=== PATIENT | male | born 1980 | race Two or more races ===

== ENCOUNTER 2018-07-07 14:59 | Emergency (ER) | payer MEDICAID ==
[~2018-07-07] VITALS: Ht 172.7 cm; Wt 74.4 kg
[2018-07-07 16:49] VITALS: BP 146/86
== END 2018-07-07 18:24 | disposition home or self-care (01) ==
LOC: ER 14:59
DX: E34.8 Other specified endocrine disorders (principal); I10 Essential (primary) hypertension; Z76.0 Encounter for issue of repeat prescription

== ENCOUNTER 2018-09-12 12:29 | Emergency (ER) | payer MEDICAID ==
[~2018-09-12] VITALS: Ht 172.7 cm; Wt 72.6 kg
[2018-09-12 12:41] VITALS: BP 156/72
[2018-09-12] MEDS ORDERED: LIDOCAINE 2% (LOCAL ANESTH.) PF 5ml SDV ONE (15:11)
[2018-09-12] MEDS ORDERED: TETANUS-DIPTH-ACEL PERTUSSIS 0.5ML SYRG IM ONE (15:15)
[2018-09-12] MEDS ORDERED: cefTRIAXone SOD 1,000 MG VL IM ONE (15:15)
[2018-09-12] MEDS ORDERED: LIDOCAINE 2% (LOCAL ANESTH.) PF 5ml SDV IJ ONE (15:30)
== END 2018-09-12 17:06 | disposition home or self-care (01) ==
LOC: EDSEX → EDBD 12:29 → ER 12:32
DX: S01.01XA Laceration without foreign body of scalp, initial encounter (principal); M25.512 Pain in left shoulder; I10 Essential (primary) hypertension; W01.0XXA Fall on same level from slipping, tripping and stumbling without subsequent striking against object, initial encounter; Y93.01 Activity, walking, marching and hiking; Y92.480 Sidewalk as the place of occurrence of the external cause; Y99.8 Other external cause status
CPT/HCPCS: 12004; 70450; 73030; 90471; 90715; 93005; 96372; 99284; J0696; J2001

== ENCOUNTER 2018-09-13 15:55 | Emergency (ER) | payer MEDICAID ==
[~2018-09-13] VITALS: Ht 185.4 cm; Wt 90.7 kg
[2018-09-13 16:47] LABS: Basophils # (auto) 0 uL; Basophils % (auto) 0.2 % (0.0-2.0); Eosinophils # (auto) 0 uL; Eosinophils % (auto) 0.4 % (0.0-7.0); Hematocrit 40.6 % (41.0-53.0); Lymphocytes # (auto) 0.9 uL; Lymphocytes % (auto) 12.8 % (10.0-50.0); Mean Corpuscular Hemoglobin 31.4 pg (28.0-32.0); Mean Corpuscular Hgb Conc. 34.5 g/dL (32.0-36.0); Monocytes # (auto) 0.6 uL; Monocytes % (auto) 8.1 % (0.0-12.0); Neutrophils # (auto) 5.8 uL; Neutrophils % (auto) 78.5 % (37.0-80.0); Nucleated Red Blood Cells % 0.1 %; Platelet Count (auto) 277 10^3/uL (140-450); Red Blood Cells 4.46 10^6/uL (4.5-5.90); Red Cell Distribution Width 13.9 % (11.8-14.3); White Blood Cell 7.3 10^3/uL (4.4-10.8)
[2018-09-13 17:00] LABS: Albumin 3.9 g/dL (3.4-5.0); Anion Gap 7 (5-15); Blood Alcohol < 3.0 mg/dL (0-5); Blood Urea Nitrogen 9 mg/dL (7-18); Calcium 8.3 mg/dL (8.5-10.1); Carbon Dioxide 25 mmol/L (21-32); Chloride 104 mmol/L (98-107); Glucose 89 mg/dL (74-106); Potassium 3.7 mmol/L (3.5-5.1); Salicylate < 1.7 mg/dL (2.8-20.0); Sodium 136 mmol/L (136-145)
[2018-09-13 17:04] LABS: Alanine Aminotransferase 43 U/L (16-61); Alkaline Phosphatase 94 U/L (45-117); Aspartate Aminotransferase 29 U/L (15-37); Bilirubin, Total 0.5 mg/dL (0.2-1.0); GFR African American 80 mL/min; GFR Non-African American 66 mL/min; Total Protein 6.9 g/dL (6.4-8.2)
[2018-09-13 17:09] LABS: Acetaminophen < 2.0 ug/mL (10-30)
[2018-09-13 17:22] LABS: Urine Amorphous Crystal FEW /hpf (None Seen); Urine Bacteria NONE SEEN /hpf (None Seen); Urine Blood Negative /uL (Negative); Urine Hyaline Cast FEW /lpf (0 - 2); Urine Specific Gravity 1.013 (1.001-1.035); Urine WBC 3 /hpf (0 - 3)
[2018-09-13 17:30] LABS: Alcohol, Urine < 3.0 mg/dL (0-5); Amphetamine Screen, Urine NEGATIVE (NEGATIVE); Barbiturate Scree,Urine NEGATIVE (NEGATIVE); Benzodiazephine Screen, Urine POSITIVE (NEGATIVE); Cannabinoid Screen, Urine NEGATIVE (NEGATIVE); Cocaine Screen, Urine NEGATIVE (NEGATIVE); Opiate Scree,Urine NEGATIVE (NEGATIVE); Phencyclidine Screen, Urine NEGATIVE (NEGATIVE)
[2018-09-14 00:57] VITALS: BP 128/85
== END 2018-09-14 02:03 | disposition home or self-care (01) ==
LOC: ER 15:55 → EDUNIT# 15:55 → EDBD 15:55 → EDSEX 15:55 → ER 09-14 02:03
DX: T42.6X2A Poisoning by other antiepileptic and sedative-hypnotic drugs, intentional self-harm, initial encounter (principal); T42.4X2A Poisoning by benzodiazepines, intentional self-harm, initial encounter; F32.9 Major depressive disorder, single episode, unspecified; F41.9 Anxiety disorder, unspecified; I10 Essential (primary) hypertension; Y92.098 Other place in other non-institutional residence as the place of occurrence of the external cause
CPT/HCPCS: 36415; 80053; 80307; 80320; 80329; 81001; 85025; 93005

== ENCOUNTER 2019-06-12 20:31 | Inpatient (IN) | payer MEDICAID ==
[~2019-06-12] VITALS: Ht 172.7 cm; Wt 73.5 kg
[2019-06-12 22:47] LABS: Basophils # (auto) 0 uL; Basophils % (auto) 0.2 % (0.0-2.0); Eosinophils # (auto) 0 uL; Eosinophils % (auto) 0.3 % (0.0-7.0); Hematocrit 45.8 % (41.0-53.0); Lymphocytes # (auto) 0.9 uL; Lymphocytes % (auto) 13.8 % (10.0-50.0); Mean Corpuscular Hemoglobin 31.3 pg (28.0-32.0); Mean Corpuscular Hgb Conc. 34.9 g/dL (32.0-36.0); Mean Corpuscular Volume 89.6 fL (80.0-100.0); Monocytes # (auto) 0.3 uL; Monocytes % (auto) 4.7 % (0.0-12.0); Neutrophils # (auto) 5.3 uL; Nucleated Red Blood Cells % 0.1 %; Platelet Count (auto) 268 10^3/uL (140-450); Red Blood Cells 5.11 10^6/uL (4.5-5.90); Red Cell Distribution Width 13.9 % (11.8-14.3); White Blood Cell 6.6 10^3/uL (4.4-10.8)
[2019-06-12 23:06] LABS: Albumin 4.2 g/dL (3.4-5.0); Anion Gap 6 (5-15); Blood Urea Nitrogen 11 mg/dL (7-18); Carbon Dioxide 25 mmol/L (21-32); Chloride 106 mmol/L (98-107); Glucose 86 mg/dL (74-106); Magnesium 2.1 mg/dL (1.6-2.6); Potassium 3.6 mmol/L (3.5-5.1); Sodium 137 mmol/L (136-145)
[2019-06-12 23:07] LABS: Acetaminophen < 2.0 ug/mL (10-30); Salicylate < 1.7 mg/dL (2.8-20.0)
[2019-06-12 23:09] LABS: Alanine Aminotransferase 24 U/L (16-61); Aspartate Aminotransferase 14 U/L (15-37); Blood Alcohol < 3.0 mg/dL (0-5); GFR African American 85 mL/min; GFR Non-African American 70 mL/min
[2019-06-12 23:11] LABS: Alkaline Phosphatase 90 U/L (45-117); Bilirubin, Total 0.6 mg/dL (0.2-1.0); Total Protein 7.5 g/dL (6.4-8.2)
[2019-06-13] MEDS ORDERED: SODIUM CHLORIDE 0.9% 3,000 ML IV ONE
[2019-06-13] MEDS ORDERED: HALOPERIDOL LACTATE 5 MG/ML INJ VIAL ONE (00:40)
[2019-06-13] MEDS ORDERED: LORazepam 2MG/ML-1ML VIAL ONE (00:40)
[2019-06-13] MEDS ORDERED: diphenhdrAMINE HCL 50 MG/1 ML VL ONE (00:40)
[2019-06-13] MEDS ORDERED: HALOPERIDOL LACTATE 5 MG/ML INJ VIAL IM ONE (01:00)
[2019-06-13] MEDS ORDERED: diphenhdrAMINE HCL 50 MG/1 ML VL IV ONE (01:00)
[2019-06-13] MEDS ORDERED: LORazepam 2MG/ML-1ML VIAL IV ONE (01:00)
[2019-06-13 04:44] LABS: Alcohol, Urine < 3.0 mg/dL (0-5); Amphetamine Screen, Urine NEGATIVE (NEGATIVE); Barbiturate Scree,Urine NEGATIVE (NEGATIVE); Benzodiazephine Screen, Urine NEGATIVE (NEGATIVE); Cannabinoid Screen, Urine NEGATIVE (NEGATIVE); Cocaine Screen, Urine NEGATIVE (NEGATIVE); Opiate Scree,Urine NEGATIVE (NEGATIVE); Phencyclidine Screen, Urine NEGATIVE (NEGATIVE)
[2019-06-13] MEDS ORDERED: NITROGLYCERIN 0.4 MG SL TAB SL PRN (05:30)
[2019-06-13] MEDS ORDERED: ONDANSETRON HCL 4 MG/2 ML VIAL IV PRN (05:30)
[2019-06-13] MEDS ORDERED: cloNIDine HCL 0.1 MG TAB PO PRN (05:30)
[2019-06-13] MEDS ORDERED: MORPHINE SULF INJ 2 MG/ML SYRINGE 1ML IV PRN (05:30)
[2019-06-13] MEDS: SODIUM CHLORIDE 0.9% 1,000 ML IV SCH ×2 (06:02→18:42)
--- NOTE | 2019-06-13 08:55 | NUR ---
Telemetry admit from ER ERIN GRANADO admitted to Telemetry unit after SBAR received. Patient oriented to JAVIER SALVADOR RN primary RN, unit, room, bed, and unit policies regarding patient care and visiting hours. Patient now on continuous telemetry monitoring, tele box # 34 and telemetry reading on arrival to unit is SR. Patient weighed by bed scale. Pt verbalizes having "hallucinations in the ER" but the pt denies having any "hallucinations" at this time. The pt states that he "feels like the medication is wearing off". The pt denies having any medications at bed side. Seizure precautions in place. Sitter at bedside for safety. Bed in lowest and locked position with side rails up x2 and call light in reach. Pt encouraged to call if they need something. All questions and concerns addressed, patient verbalized understanding.
[2019-06-13 09:30] VITALS: BP 144/90
[2019-06-13] MEDS: FAMOTIDINE 20 MG TAB PO SCH ×2 (10:40→21:51)
[2019-06-13] MEDS: LISINOPRIL 20 MG TAB PO SCH (10:41)
--- NOTE | 2019-06-13 11:00 | NUR ---
ADMISSION ASSESSMENT PATIENT IS ALERT AND ORIENTED TO PERSON, PLACE, TIME, AND SITUATION. PATIENT REPORTS TAKING MULTIPLE DOSES OF HOME MEDICATION WELLBUTRIN. PATIENT STATES, "I DO NOT WANT TO HARM MYSELF, I JUST WANTED TO FEEL HIGH." PATIENT DENIES SUICIDE ATTEMPT AND DENIES HISTORY OF SUICIDE ATTEMPT. PATIENT REPORTS SEEING AND HEARING PEOPLE TALKING IN THE GALE IN THE ER AND STATES, "I WAS HAVING HALLUCINATIONS DOWN IN THE ER, PEOPLE WERE STANDING WHERE I COULD SEE THEM AND WERE CUSSING AT EACH OTHER. THEY WERE NOT TELLING ME TO HARM MYSELF OR TO HARM OTHERS, THEY WERE JUST TALKING TO EACH OTHER BUT USING VULGARITIES SO I DIDN'T THINK THAT WAS SOMETHING I WOULD NORMALLY SEE AND THOUGHT I WAS HALLUCINATING." Addendum: 06/13/19 at 1137 by Estefani Jacob RN PRIMARY ECHO JIANG NOTIFIED TO COMPLETE ADMISSION ASSESSMENT AND VALUABLES SHEET.
[2019-06-13] MEDS ORDERED: GABA-339 PO (11:26)
[2019-06-13] MEDS ORDERED: ALPR0.5T PO (11:26)
[2019-06-13] MEDS ORDERED: FLUO20CA19 PO (11:26)
[2019-06-13] MEDS ORDERED: BUPR-40 PO (11:26)
[2019-06-13] MEDS ORDERED: INFLUENZA QUAD 2019-2020 0.5ml SYRG IM ONE (11:30)
[2019-06-13 13:00] VITALS: BP 148/94
[2019-06-13 17:00] VITALS: BP 132/83
--- NOTE | 2019-06-13 19:30 | NUR ---
CARE ENDORSED TO CRISTINA RNPRASHANT.
--- NOTE | 2019-06-13 19:50 | NUR ---
Opening shift note Patient in bed alert and oriented x 4, verbally coherent able to make needs known. Patient's respiration even and unlabored, denies pain and discomfort. Pt denies visual or auditory hallucinations at this time. No episodes of seizures. Plan of care discussed, patient verbalized understanding. All needs attended, sitter at bedside, will continue to monitor.
--- NOTE | 2019-06-13 20:48 | NUR ---
KATHY Marin at the nurses station with new order for Temazepam 15mg tab po QHS PRN. All orders read back noted and carried out. Will continue to monitor.
--- NOTE | 2019-06-13 21:45 | NUR ---
Received call from Poison control Update given to Tomi ([phone]) regarding patient's EKG reading, current vital signs with no significant change in condition.
[2019-06-13] MEDS: TEMAZEPAM 15 MG CAP PO PRN (21:51)
[2019-06-14 05:38] VITALS: BP 134/97
--- NOTE | 2019-06-14 05:51 | NUR ---
Paged KATHY Marin for 2 episodes of low heart rate level at 47bpm. EKG done showing sinus rhythm at 67 bpm. Manually rechecked heart rate to left radial at 63 bpm. Patient asymptomatic, denies dizziness, lightheadedness, confusion, chest pain or shortness of breath. Awaiting ELECTRONIC WARFARE TECHNICIAN's call back. Sitter at bedside. Will continue to monitor.
--- NOTE | 2019-06-14 06:18 | NUR ---
EKG strips with episodes of bradycardia seen and signed by KATHY Marin with no new orders received. Will continue to monitor.
[2019-06-14 06:32] LABS: Calcium 8.2 mg/dL (8.5-10.1); Potassium 3.8 mmol/L (3.5-5.1)
[2019-06-14 06:35] LABS: BUN/Creatinine Ratio 10.7
[2019-06-14] MEDS: LISINOPRIL 20 MG TAB PO SCH (09:44)
[2019-06-14] MEDS: SODIUM CHLORIDE 0.9% 1,000 ML IV SCH ×2 (09:45→21:12)
[2019-06-14] MEDS: FAMOTIDINE 20 MG TAB PO SCH ×2 (09:45→21:15)
[2019-06-14 09:47] VITALS: BP 141/81
[2019-06-14 12:00] VITALS: BP 140/83
[2019-06-14 17:16] VITALS: BP 132/83
--- NOTE | 2019-06-14 19:15 | NUR ---
Opening Shift Note Assumed care of patient, awake and alert. No S/S of distress/SOB or pain. Instructed on POC and to call for assist PRN, will continue to monitor for changes Q1hr and PRN.
[2019-06-14] MEDS: buPROPion HCL 75 MG TAB PO SCH (19:21)
[2019-06-14] MEDS: TEMAZEPAM 15 MG CAP PO PRN (21:11)
--- NOTE | 2019-06-15 04:32 | NUR ---
TELE/PSYCH EVALUATION Dr. Pantoja evaluated the patient via tele/psych monitor and determined that the patient should be placed on a 51/50 hold and admitted to inpatient psych. SOC Tele/med will fax report.
--- NOTE | 2019-06-15 06:23 | NUR ---
[facility] Will place consultation report in the patient's chart.
[2019-06-15] MEDS: buPROPion HCL 75 MG TAB PO SCH ×2 (06:42→18:33)
--- NOTE | 2019-06-15 07:15 | NUR ---
Opening Shift Note Assumed care of patient, awake,alert and oriented, No S/S of distress/SOB or pain.manager food safety at bedside Instructed on POC and nursing routines. call light within reach patient reminded instructed to call for assistance.will continue to monitor for changes Q1hr and PRN.
[2019-06-15 09:00] VITALS: BP 135/85
--- NOTE | 2019-06-15 09:50 | NUR ---
MD VISIT HERE TO SEE AND EXAMINED PATIENT,RECEIVED ORDERS.
--- NOTE | 2019-06-15 10:00 | NUR ---
AMBULATES IN HALLWAY ACCOMPANIED BY TRIM SAWYER.
[2019-06-15] MEDS: GABAPENTIN 300 MG CAP PO SCH (10:05)
[2019-06-15] MEDS: FLUoxetine HCL 20 MG CAP PO SCH (10:05)
[2019-06-15] MEDS: LISINOPRIL 20 MG TAB PO SCH (10:05)
[2019-06-15] MEDS: FAMOTIDINE 20 MG TAB PO SCH ×2 (10:05→21:03)
--- NOTE | 2019-06-15 10:10 | NUR ---
ANGEL CHARGE NURSE MADE AWARE PATIENT NEEDING A 5150 NURSE,STATED WILL CONTACT A NURSE THAT CAN DO 5150 REPORT.
--- NOTE | 2019-06-15 11:18 | NUR ---
SS in pt school psychology specialist will need to fax me tele psych report and [phone] report so I can fax to Behavioral call center . My fax is [phone]
[2019-06-15 13:00] VITALS: BP 133/82
--- NOTE | 2019-06-15 15:32 | NUR ---
Evaluation for 5150 hold Patient is awake, alert and oriented x 4. Patient very willing to discuss his situation. Patient states he does not want to harm himself in any way, he just wanted to feel good and knows what he did was wrong. Patient states he has no itention of doing this again and is going to have his brother Brown manage his medications from now on. He was homeless in the past and feeling hopeless but now he will be staying with his brother Brown. Patient states he will use the [facility] for any help in the future. He has used them in the past and they were very helpful. the patients nurse Anusha was informed of the conversation and the patients plan to live with his brother and have him manage his medication from now on in order to prevent this from happening again. He will also seek services at the clinic to avoid getting to this point again. At this time the patient does not appear to want to harm himself and has a plan in place for discharge to prevent episodes like this from happening again. Control # [id number]
--- NOTE | 2019-06-15 15:35 | NUR ---
Assessment and consult Pt is a 39 yr old male who is alert and oriented. Pt admitted Prior to admit, pt lives with brother, brother's and their 2 kids at the [place] [id number]. Pt admitted due to overdosing on prescription drugs for depression. SS consult given for the pt overdosing on home medication. Pt stated that he didn't have a desire to kill himself but that he wanted to get high and wasn't sure whether it would do it or not. Pt stated that he has overdosed a few times before on medications that gave him a "high." Pt stated that he doesn't currently have any suicidal ideation. Pt stated that he has had ideation in the past of jumping off of a bridge but has never attempted suicide. SW assessed for social support and resources needed. Pt stated that he is very aware of services in the community that could help him. Pt stated that he recently completed a 2 month inpatient program at [facility] for drug abuse. Pt stated that he is currently connected with a psychiatrist and therapist to help with his depression and substance abuse. Pt stated that he has also stated at the homeless jail a couple of times recently and doesn't have any time left there currently to stay there. Pt stated that he doesn't have a job or receive any form of income except for food stamps. Pt stated that he would really like to get a job but that he hasn't been able to hold down a job due to his mental health issues. SW educated pt on Vocational rehabilitation and the help that he can receive through them to find employment. Pt was very interested in it, SW provided pt with the phone number to call for services. SW provided information for support groups and substance abuse resources as well. Pt stated that he has no current interest in and Advanced Directive. Pt stated that he will need a taxi voucher upon d/c. Pt stated that the doctor has him on a 5150 hold and that he might be transferred to another facility. D/C needs will be further assessed and addressed closer to d/c or transfer. Addendum: 06/15/19 at 1551 by VALENTINA GARICA Amended: Links added.
--- NOTE | 2019-06-15 15:45 | NUR ---
MELODIE FUNK INFORMED OF [id number] EVALUATION
--- NOTE | 2019-06-15 16:04 | NUR ---
PAGED AND LEFT MESSAGE TO DR. LOPES CELL PHONE TO CALL BACK RE [phone] ASSESSMENT AND EVALUATION FOR THIS PATIENT.
--- NOTE | 2019-06-15 16:30 | NUR ---
PER ANGEL CHARGE NURSE SPOKE AND INFORMED RE 5150 EVALUATION.
[2019-06-15 17:00] VITALS: BP 131/73
--- NOTE | 2019-06-15 19:06 | NUR ---
STATUS UNCHANGED NO DISTRESS, NO DISCOMFORT.REPORT GIVEN TO INCOMING NOC SHIFT R.N.
--- NOTE | 2019-06-15 19:45 | NUR ---
Opening Shift Note Assumed care of patient, awake and alert. No S/S of distress/SOB or pain. Sitter at bedside. Instructed on POC and to call for assist PRN, patient verbalized understanding, call light within reach, will continue to monitor for changes Q1hr and PRN.
[2019-06-15 22:00] VITALS: BP 130/65
[2019-06-16 05:00] VITALS: BP 123/74
[2019-06-16] MEDS: buPROPion HCL 75 MG TAB PO SCH (06:25)
--- NOTE | 2019-06-16 06:26 | NUR ---
Called SOC Tele Med and informed of the reconsult, awaiting call back
--- NOTE | 2019-06-16 06:47 | NUR ---
Positioned Tele Med machine in patient's room
--- NOTE | 2019-06-16 07:15 | NUR ---
Opening Shift Note Assumed care of patient, awake,alert and oriented, No S/S of distress/SOB or pain. Instructed on POC and to call for assistance as needed ,will continue to monitor for changes Q1hr and PRN [employer]ER[employer] PILOT AT BEDSIDE.
[2019-06-16 09:00] VITALS: BP 134/84
[2019-06-16] MEDS: GABAPENTIN 300 MG CAP PO SCH (09:30)
[2019-06-16] MEDS: FLUoxetine HCL 20 MG CAP PO SCH (09:31)
[2019-06-16] MEDS: FAMOTIDINE 20 MG TAB PO SCH (09:31)
[2019-06-16] MEDS: LISINOPRIL 20 MG TAB PO SCH (09:32)
--- NOTE | 2019-06-16 11:20 | NUR ---
TELE PSYCH EVALUATION FROM SOC TELE MED PSYCHIATRIST DONE.
--- NOTE | 2019-06-16 11:30 | NUR ---
SOC TELE MED PSYCHIATRIST SPOKE TO DR. FARMER RE ASSESSMENT AND DISCHARGE RECOMMENDATION FOR PATIENT
--- NOTE | 2019-06-16 11:44 | NUR ---
NUTRITION ASSESSMENT NOTES Please refer to link notes of nutrition screen form filed under the intervention section of the plan of care for further details. Est. Needs: 1850 kcal to 2200 kcal (25-30 kcal/kgBW), 74 gms to 88 gms pro (1.0-1.2 gms/kgBW). Will continue to monitor pertinent labs and reassess nutrient need prn Thank you. Addendum: 06/16/19 at [address] Amended: Links added.
--- NOTE | 2019-06-16 11:55 | NUR ---
PER PATIENT HE GOES TO [facility] FOR HIS PSYCHIATRY FOLLOW UP,CALLED CLINIC AND VERIFY IF PATIENT NEEDING APPOINTMENT PER CLINIC,PATIENT CAN JUST WALK IN.
[2019-06-16 13:00] VITALS: BP 128/79
[2019-06-16] MEDS ORDERED: INFLUENZA QUAD 2019-2020 0.5ml SYRG IM ONE (15:00)
[2019-06-16 15:33] VITALS: BP 128/79
--- NOTE | 2019-06-16 16:24 | NUR ---
pt can go home will get auth for [facility] tomorrow since had to leave message for auth
[2019-06-16 17:00] VITALS: BP 137/79
--- NOTE | 2019-06-16 17:05 | NUR ---
D/C Planning Per consult for home health safety evaluation. Contacted [facility]:) Fax:) Faxed medical records. Per Sangeeta from [facility] Pt has been accepted and service to start within 48hrs upon d/c day. Information was given to Pt at bedside. Pt Verbalize understanding. Informed ECHO Wilson for authorization. Addendum: 06/16/19 at 1709 by DAREN ESPINOZA Amended: Links added.
--- NOTE | 2019-06-16 19:43 | NUR ---
Discharge instructions given as ordered. Encourage to follow up with PMD as instructed. All questions and concerns addressed. Patient verbalized understanding. Medication reconciliation form completed and copy given to patient. Home medications held in Pharmacy returned to patient, and needed vaccines given. IV removed with catheter intact, pressure dressing applied. Telemetry unit returned to ICU. Patient taken to vehicle via wheelchair with all personal belongings, accompanied by staff and family member. No distress noted at time of departure.
--- NOTE | 2019-06-17 08:20 | NUR ---
spoke to Clair at [facility] and she will generate auth today and send to [facility] and she will also call me with auth
== END 2019-06-16 19:40 | disposition home health service (06) | DRG 812 ==
LOC: EDBD 20:31 → ER 20:33 → TELE 20:44 → TELE-EAST 06-13 08:50 → EAST 06-15 23:27
PROVIDERS: ADMIT Nurse Practitioner; ATTEND Internal Medicine
DX: T43.291A Poisoning by other antidepressants, accidental (unintentional), initial encounter (principal); F17.210 Nicotine dependence, cigarettes, uncomplicated; F32.9 Major depressive disorder, single episode, unspecified; R44.0 Auditory hallucinations; I10 Essential (primary) hypertension; Z79.899 Other long term (current) drug therapy; Z23 Encounter for immunization; Y92.89 Other specified places as the place of occurrence of the external cause
CPT/HCPCS: 36415; 51702; 80048; 80053; 80307; 80320; 80329; 83735; 85025; 93005; 94761; 96372; 96374; 96375; G0378

== ENCOUNTER 2019-12-23 21:22 | Emergency (ER) | payer MEDICAID ==
[~2019-12-23] VITALS: Ht 172.7 cm; Wt 74.8 kg
[~2019-12-23 21:22] MED LIST: FLUO20CA19 PO; GABA-339 PO
[2019-12-23 21:52] LABS: Basophils # (auto) 0 10 ^3/uL (0-0.2); Basophils % (auto) 0.3 % (0.0-2.0); Eosinophils # (auto) 0.1 10 ^3/uL (0-0.8); Eosinophils % (auto) 1.3 % (0.0-7.0); Hematocrit 43.6 % (41.0-53.0); Lymphocytes % (auto) 17.5 % (10.0-50.0); Mean Corpuscular Hgb Conc. 34.3 g/dL (32.0-36.0); Mean Corpuscular Volume 90.2 fL (80.0-100.0); Monocytes # (auto) 0.4 10 ^3/uL (0-1.3); Monocytes % (auto) 6.9 % (0.0-12.0); Neutrophils # (auto) 4.3 10 ^3/uL (1.6-8.6); Nucleated Red Blood Cells % 0.1 %; Platelet Count (auto) 259 10^3/uL (140-450); Red Blood Cells 4.83 10^6/uL (4.5-5.90); White Blood Cell 5.8 10^3/uL (4.4-10.8)
[2019-12-23 22:10] LABS: Albumin 3.9 g/dL (3.4-5.0); Calcium 8.8 mg/dL (8.5-10.1); Potassium 3.6 mmol/L (3.5-5.1)
[2019-12-23 22:13] LABS: BUN/Creatinine Ratio 8.9; Bilirubin, Total 0.4 mg/dL (0.2-1.0); Total Protein 6.9 g/dL (6.4-8.2)
[2019-12-23 23:44] LABS: Urine Bacteria FEW /hpf (None Seen); Urine Blood Negative /uL (Negative); Urine Sperm PRESENT /hpf (None Seen); Urine WBC 1 /hpf (0 - 3)
[2019-12-23 23:57] LABS: Amphetamine Screen, Urine NEGATIVE (NEGATIVE); Barbiturate Scree,Urine NEGATIVE (NEGATIVE); Benzodiazephine Screen, Urine NEGATIVE (NEGATIVE); Cannabinoid Screen, Urine NEGATIVE (NEGATIVE); Cocaine Screen, Urine NEGATIVE (NEGATIVE); Opiate Scree,Urine NEGATIVE (NEGATIVE); Phencyclidine Screen, Urine NEGATIVE (NEGATIVE)
[2019-12-24 01:00] VITALS: BP 162/102
== END 2019-12-24 02:18 | disposition home or self-care (01) ==
LOC: EDBD 21:22 → ER 21:27
DX: F41.8 Other specified anxiety disorders (principal); F32.3 Major depressive disorder, single episode, severe with psychotic features; I10 Essential (primary) hypertension; F17.210 Nicotine dependence, cigarettes, uncomplicated
CPT/HCPCS: 36415; 70450; 71045; 72125; 80053; 80307; 81001; 85025

== ENCOUNTER 2020-06-17 16:40 | Emergency (ER) | payer MEDICAID ==
[~2020-06-17] VITALS: Ht 172.7 cm; Wt 75.7 kg
[2020-06-17 17:51] LABS: Basophils # (auto) 0 10 ^3/uL (0-0.2); Basophils % (auto) 0.3 % (0.0-2.0); Eosinophils # (auto) 0.1 10 ^3/uL (0-0.8); Eosinophils % (auto) 1.4 % (0.0-7.0); Hematocrit 42.6 % (41.0-53.0); Lymphocytes # (auto) 2.2 10 ^3/uL (0.4-5.4); Mean Corpuscular Hemoglobin 32.1 pg (28.0-32.0); Mean Corpuscular Hgb Conc. 35.3 g/dL (32.0-36.0); Monocytes # (auto) 0.6 10 ^3/uL (0-1.3); Monocytes % (auto) 9.1 % (0.0-12.0); Neutrophils # (auto) 3.8 10 ^3/uL (1.6-8.6); Neutrophils % (auto) 57.2 % (37.0-80.0); Nucleated Red Blood Cells % 0.1 %; Platelet Count (auto) 270 10^3/uL (140-450); Red Blood Cells 4.68 10^6/uL (4.5-5.90); Red Cell Distribution Width 13.7 % (11.8-14.3); White Blood Cell 6.7 10^3/uL (4.4-10.8)
[2020-06-17 18:05] LABS: Acetaminophen < 2.0 ug/mL (10-30); Salicylate < 1.7 mg/dL (2.8-20.0)
[2020-06-17 18:06] LABS: Albumin 4.2 g/dL (3.4-5.0); BUN/Creatinine Ratio 7.6; Calcium 9.1 mg/dL (8.5-10.1); Potassium 3.4 mmol/L (3.5-5.1)
[2020-06-17 18:08] LABS: Bilirubin, Total 0.4 mg/dL (0.2-1.0); Total Protein 7.1 g/dL (6.4-8.2)
[2020-06-17 18:45] LABS: Urine Bacteria FEW /hpf (None Seen); Urine Blood Negative /uL (Negative); Urine Specific Gravity 1.004 (1.001-1.035); Urine WBC <1 /hpf (0 - 3)
[2020-06-17 18:56] LABS: Alcohol, Urine < 3.0 mg/dL (0-10); Amphetamine Screen, Urine NEGATIVE (NEGATIVE); Barbiturate Scree,Urine NEGATIVE (NEGATIVE); Benzodiazephine Screen, Urine NEGATIVE (NEGATIVE); Cannabinoid Screen, Urine NEGATIVE (NEGATIVE); Cocaine Screen, Urine NEGATIVE (NEGATIVE); Opiate Scree,Urine NEGATIVE (NEGATIVE); Phencyclidine Screen, Urine NEGATIVE (NEGATIVE)
[2020-06-18] MEDS ORDERED: buPROPion HCL 100 MG TAB PO SCH (10:00)
[2020-06-18] MEDS ORDERED: BUPR150T6 PO (11:28)
[2020-06-18] MEDS: GABAPENTIN 300 MG CAP PO SCH ×2 (11:30→22:08)
[2020-06-18] MEDS: FLUoxetine HCL 20 MG CAP PO SCH (11:35)
[2020-06-18] MEDS ORDERED: buPROPion HCL 75 MG TAB PO SCH (22:00)
[2020-06-19] MEDS: GABAPENTIN 300 MG CAP PO SCH ×2 (10:00→23:50)
[2020-06-19] MEDS ORDERED: BUPROPION HCL 150 MG PO SCH (10:00)
[2020-06-19] MEDS: FLUoxetine HCL 20 MG CAP PO SCH (23:50)
[2020-06-20] MEDS: FLUoxetine HCL 20 MG CAP PO SCH (12:50)
[2020-06-20] MEDS: GABAPENTIN 300 MG CAP PO SCH ×2 (12:50→22:35)
[2020-06-21] MEDS: GABAPENTIN 300 MG CAP PO SCH ×2 (11:45→22:41)
[2020-06-21] MEDS: FLUoxetine HCL 20 MG CAP PO SCH (11:45)
[2020-06-22] MEDS: GABAPENTIN 300 MG CAP PO SCH (10:35)
[2020-06-22] MEDS: FLUoxetine HCL 20 MG CAP PO SCH (10:35)
[2020-06-22 10:40] VITALS: BP 125/82
== END 2020-06-22 11:23 | disposition home or self-care (01) ==
LOC: ER 16:40
DX: T37.4X Poisoning by, adverse effect of and underdosing of anthelminthics (principal); F32.9 Major depressive disorder, single episode, unspecified; F41.9 Anxiety disorder, unspecified; I10 Essential (primary) hypertension; Z20.828 Contact with and (suspected) exposure to other viral communicable diseases; Y92.89 Other specified places as the place of occurrence of the external cause
CPT/HCPCS: 36415; 71045; 80053; 80307; 80320; 80329; 81001; 83735; 85025; 93005; 99285; C9803; U0003

== ENCOUNTER → 2021-05-11 | Emergency (ER) | payer MEDICAID ==
[~2021-05-11] VITALS: Ht 167.6 cm; Wt 79.4 kg
[~2021-05-11] MED LIST changes: +BUPR150T18 PO
[2021-05-11 18:31] LABS: Acetaminophen < 2.0 ug/mL (10-30)
[2021-05-11 19:54] LABS: Basophils # (auto) 0 10 ^3/uL (0-0.2); Basophils % (auto) 0.3 % (0.0-2.0); Eosinophils # (auto) 0.1 10 ^3/uL (0-0.8); Eosinophils % (auto) 0.8 % (0.0-7.0); Hematocrit 47.3 % (41.0-53.0); Lymphocytes # (auto) 1.5 10 ^3/uL (0.4-5.4); Lymphocytes % (auto) 19.6 % (10.0-50.0); Mean Corpuscular Hemoglobin 30.6 pg (28.0-32.0); Mean Corpuscular Hgb Conc. 33.8 g/dL (32.0-36.0); Mean Corpuscular Volume 90.4 fL (80.0-100.0); Monocytes # (auto) 0.4 10 ^3/uL (0-1.3); Monocytes % (auto) 5.6 % (0.0-12.0); Neutrophils # (auto) 5.5 10 ^3/uL (1.6-8.6); Neutrophils % (auto) 73.7 % (37.0-80.0); Nucleated Red Blood Cells % 0.1 %; Red Blood Cells 5.24 10^6/uL (4.5-5.90); Red Cell Distribution Width 13.7 % (11.8-14.3); White Blood Cell 7.5 10^3/uL (4.4-10.8)
[2021-05-11 20:07] LABS: Albumin 4.3 g/dL (3.4-5.0); Calcium 9.2 mg/dL (8.5-10.1); Potassium 4.2 mmol/L (3.5-5.1)
[2021-05-11 20:10] LABS: BUN/Creatinine Ratio 8.7; Bilirubin, Total 0.6 mg/dL (0.2-1.0); Total Protein 7.8 g/dL (6.4-8.2)
[2021-05-12 04:45] VITALS: BP 130/85
== END | disposition home or self-care (01) ==
LOC: EDUNIT# 16:43 → EDBD 16:43 → ER 16:43
DX: T47.6X1A Poisoning by antidiarrheal drugs, accidental (unintentional), initial encounter (principal); F31.9 Bipolar disorder, unspecified; F41.9 Anxiety disorder, unspecified; I10 Essential (primary) hypertension; F17.210 Nicotine dependence, cigarettes, uncomplicated; F12.10 Cannabis abuse, uncomplicated; Y92.9 Unspecified place or not applicable
CPT/HCPCS: 36415; 80053; 80329; 85025

== ENCOUNTER 2021-12-19 19:22 | Emergency (ER) | payer MEDICAID ==
[~2021-12-19] VITALS: Ht 172.7 cm; Wt 77.1 kg
[2021-12-19 21:27] LABS: Alcohol, Urine < 3.0 mg/dL (0-10); Amphetamine Screen, Urine NEGATIVE (NEGATIVE); Barbiturate Scree,Urine NEGATIVE (NEGATIVE); Benzodiazephine Screen, Urine NEGATIVE (NEGATIVE); Cannabinoid Screen, Urine NEGATIVE (NEGATIVE); Cocaine Screen, Urine NEGATIVE (NEGATIVE); Opiate Scree,Urine NEGATIVE (NEGATIVE); Phencyclidine Screen, Urine NEGATIVE (NEGATIVE)
[2021-12-19 21:34] LABS: Basophils # (auto) 0 10 ^3/uL (0-0.2); Basophils % (auto) 0.7 % (0.0-2.0); Eosinophils # (auto) 0.1 10 ^3/uL (0-0.8); Eosinophils % (auto) 2.9 % (0.0-7.0); Hematocrit 41.1 % (41.0-53.0); Hemoglobin 14.7 g/dL (13.5-17.5); Lymphocytes # (auto) 1.8 10 ^3/uL (0.4-5.4); Lymphocytes % (auto) 39.4 % (10.0-50.0); Mean Corpuscular Hemoglobin 31.2 pg (28.0-32.0); Mean Corpuscular Hgb Conc. 35.7 g/dL (32.0-36.0); Mean Corpuscular Volume 87.5 fL (80.0-100.0); Monocytes # (auto) 0.4 10 ^3/uL (0-1.3); Monocytes % (auto) 9.2 % (0.0-12.0); Neutrophils # (auto) 2.2 10 ^3/uL (1.6-8.6); Neutrophils % (auto) 47.8 % (37.0-80.0); Nucleated Red Blood Cells % 0.1 %; Red Cell Distribution Width 13.7 % (11.8-14.3); White Blood Cell 4.6 10^3/uL (4.4-10.8)
[2021-12-19 22:02] LABS: Salicylate < 1.7 mg/dL (2.8-20.0)
[2021-12-19 22:03] LABS: Alanine Aminotransferase 57 U/L (16-61); Albumin 3.9 g/dL (3.4-5.0); Anion Gap 7 (5-15); Aspartate Aminotransferase 36 U/L (15-37); BUN/Creatinine Ratio 12.9; Blood Alcohol < 3.0 mg/dL (0-5); Blood Urea Nitrogen 12 mg/dL (7-18); Calcium 8.9 mg/dL (8.5-10.1); Carbon Dioxide 29 mmol/L (21-32); Chloride 105 mmol/L (98-107); GFR African American 115 mL/min; GFR Non-African American 95 mL/min; Glucose 98 mg/dL (74-106); Potassium 3.3 mmol/L (3.5-5.1); Sodium 141 mmol/L (136-145)
[2021-12-19 22:05] LABS: Alkaline Phosphatase 109 U/L (45-117); Bilirubin, Total 0.6 mg/dL (0.2-1.0); Total Protein 7.2 g/dL (6.4-8.2)
[2021-12-19 22:12] LABS: Acetaminophen < 2.0 ug/mL (10-30)
[2021-12-19] MEDS ORDERED: MORPHINE SULFATE INJECTION 2 MG/ML SYRG IV PRN (22:45)
[2021-12-19] MEDS ORDERED: NITROGLYCERIN 0.4 MG SL TAB SL PRN (22:45)
[2021-12-20 01:47] VITALS: BP 152/98
[2021-12-20] MEDS: SODIUM CHLOR 0.9% PF (SALINE LOCK) 10ML VIAL/SYR IV SCH ×2 (08:02→14:45)
== END 2021-12-20 16:36 | disposition home or self-care (01) ==
LOC: ER 19:22
DX: F32.9 Major depressive disorder, single episode, unspecified (principal); R45.851 Suicidal ideations; I10 Essential (primary) hypertension
CPT/HCPCS: 36415; 80053; 80307; 80320; 80329; 85025; 93005

== ENCOUNTER 2024-01-16 15:30 | Emergency (ER) | payer MEDICAID ==
[~2024-01-16] VITALS: Ht 170.2 cm; Wt 86.3 kg
[2024-01-16] MEDS: LORazepam 2MG/ML-1ML VIAL IV ONE (16:34)
[2024-01-16 16:49] VITALS: PULSE 80; RESP 14; O2SAT 97
[2024-01-16 16:53] LABS: Urine Bacteria None Seen /hpf (None Seen)
[2024-01-16 17:11] LABS: Urine Blood Negative /uL (Negative); Urine Clarity Clear (Clear); Urine Color Colorless (Yellow); Urine Protein, UAD Negative (Negative); Urine Specific Gravity 1.002 (1.001-1.035); Urine Urobilinogen Normal (Negative); Urine WBC <1 /hpf (0 - 3)
[2024-01-16 17:21] LABS: Amphetamine Screen, Urine Neg (NEGATIVE); Benzodiazephine Screen, Urine Neg (NEGATIVE)
[2024-01-16 17:22] LABS: Barbiturate Scree,Urine Neg (NEGATIVE); Cannabinoid Screen, Urine Neg (NEGATIVE); Cocaine Screen, Urine Neg (NEGATIVE); Opiate Scree,Urine Neg (NEGATIVE); Phencyclidine Screen, Urine Neg (NEGATIVE)
[2024-01-16 17:29] LABS: Basophils # (auto) 0 10 ^3/uL (0-0.2); Basophils % (auto) 0.2 % (0.0-2.0); Eosinophils # (auto) 0 10 ^3/uL (0-0.8); Eosinophils % (auto) 0.5 % (0.0-7.0); Hematocrit 41.4 % (41.0-53.0); Hemoglobin 14.2 g/dL (13.5-17.5); Lymphocytes # (auto) 1.2 10 ^3/uL (0.4-5.4); Lymphocytes % (auto) 12.8 % (10.0-50.0); Mean Corpuscular Hemoglobin 30.7 pg (28.0-32.0); Mean Corpuscular Hgb Conc. 34.3 g/dL (32.0-36.0); Mean Corpuscular Volume 89.4 fL (80.0-100.0); Monocytes # (auto) 0.7 10 ^3/uL (0-1.3); Monocytes % (auto) 7.5 % (0.0-12.0); Neutrophils # (auto) 7.2 10 ^3/uL (1.6-8.6); Red Blood Cells 4.63 10^6/uL (4.5-5.90); White Blood Cell 9.1 10^3/uL (4.4-10.8)
[2024-01-16 17:53] LABS: Alanine Aminotransferase 36 U/L (7-40); Albumin 4.3 g/dL (3.2-4.8); Alkaline Phosphatase 91 U/L (46-116); Anion Gap 6 (5-15); Aspartate Aminotransferase 22 U/L (13-40); Bilirubin, Total 0.4 mg/dL (0.2-1.0); Calcium 9.5 mg/dL (8.5-10.1); Carbon Dioxide 27 mmol/L (20-30); Chloride 106 mmol/L (98-107); Glucose 107 mg/dL (74-106); Potassium 2.9 mmol/L (3.5-5.1); Sodium 139 mmol/L (136-145); Total Protein 6.6 g/dL (5.7-8.2)
[2024-01-16 18:34] LABS: Blood Urea Nitrogen < 5 mg/dL (9-23)
[2024-01-16] MEDS: POTASSIUM EFFERVESENT TAB 25 MEQ PO ONE (20:14)
[2024-01-16 20:46] VITALS: O2SAT 97
[2024-01-16] MEDS ORDERED: TRAZ-181 PO (21:44)
[2024-01-16 21:56] VITALS: BP 127/67; PULSE 64; RESP 18; TEMP 98.8
== END 2024-01-16 22:00 | disposition home or self-care (01) ==
LOC: EDUNIT# 15:30 → EDBD 15:30 → ER 15:30
DX: F32.A Depression, unspecified (principal); I10 Essential (primary) hypertension; Z79.899 Other long term (current) drug therapy
CPT/HCPCS: 36415; 80053; 80307; 80329; 81001; 85025; 96374; 99283; J2060